=== PATIENT | male | born 1960 | race Caucasian/White ===

== ENCOUNTER 2021-04-17 17:19 | Emergency (ER) | payer MEDICAID, OTHER ==
[~2021-04-17] VITALS: Ht 180.3 cm; Wt 74.8 kg
[2021-04-17] MEDS ORDERED: SODIUM CHLORIDE 0.9% 1,000 ML IV ONE ×2 (18:00→23:45)
[2021-04-17 18:12] LABS: Basophils # (auto) 0.1 10 ^3/uL (0-0.2); Basophils % (auto) 0.6 % (0.0-2.0); Eosinophils # (auto) 0.1 10 ^3/uL (0-0.8); Hematocrit 39.8 % (41.0-53.0); Hemoglobin 13.8 g/dL (13.5-17.5); Lymphocytes # (auto) 1.9 10 ^3/uL (0.4-5.4); Lymphocytes % (auto) 14.3 % (10.0-50.0); Mean Corpuscular Hemoglobin 32.5 pg (28.0-32.0); Mean Corpuscular Hgb Conc. 34.6 g/dL (32.0-36.0); Mean Corpuscular Volume 93.9 fL (80.0-100.0); Monocytes # (auto) 1.7 10 ^3/uL (0-1.3); Neutrophils # (auto) 9.3 10 ^3/uL (1.6-8.6); Neutrophils % (auto) 71.1 % (37.0-80.0); Red Blood Cells 4.24 10^6/uL (4.5-5.90); Red Cell Distribution Width 13.6 % (11.8-14.3); White Blood Cell 13.1 10^3/uL (4.4-10.8)
[2021-04-17 18:19] LABS: Albumin 2.9 g/dL (3.4-5.0); Anion Gap 8 (5-15); Blood Urea Nitrogen 12 mg/dL (7-18); Calcium 8.4 mg/dL (8.5-10.1); Carbon Dioxide 25 mmol/L (21-32); Chloride 108 mmol/L (98-107); Glucose 63 mg/dL (74-106); Potassium 3.8 mmol/L (3.5-5.1); Sodium 141 mmol/L (136-145)
[2021-04-17 18:20] LABS: Alanine Aminotransferase 23 U/L (16-61); Aspartate Aminotransferase 10 U/L (15-37); BUN/Creatinine Ratio 9.8; GFR African American 77 mL/min; GFR Non-African American 64 mL/min
[2021-04-17 18:25] LABS: Alkaline Phosphatase 64 U/L (45-117); Bilirubin, Total 0.6 mg/dL (0.2-1.0); Total Protein 7.1 g/dL (6.4-8.2)
[2021-04-17] MEDS ORDERED: ONDANSETRON HCL 4 MG/2 ML VIAL IV ONE ×2 (19:00→23:00)
[2021-04-17 20:27] LABS: Urine Bacteria FEW /hpf (None Seen); Urine Blood Negative /uL (Negative); Urine Mucus FEW (None Seen); Urine Specific Gravity 1.029 (1.001-1.035); Urine WBC 4 /hpf (0 - 3)
[2021-04-17] MEDS ORDERED: PANTOPRAZOLE 40 MG/10 ML VIAL INJ IV ONE (20:30)
[2021-04-17 22:06] LABS: Alcohol, Urine < 3.0 mg/dL (0-10); Amphetamine Screen, Urine NEGATIVE (NEGATIVE); Barbiturate Scree,Urine NEGATIVE (NEGATIVE); Benzodiazephine Screen, Urine NEGATIVE (NEGATIVE); Cannabinoid Screen, Urine POSITIVE (NEGATIVE); Cocaine Screen, Urine NEGATIVE (NEGATIVE); Phencyclidine Screen, Urine NEGATIVE (NEGATIVE)
[2021-04-17 22:13] LABS: Opiate Scree,Urine NEGATIVE (NEGATIVE)
[2021-04-17] MEDS ORDERED: MORPHINE SULFATE 4 MG/ML SYR/VIAL IV ONE (23:00)
[2021-04-18 01:00] VITALS: BP 117/69
== END 2021-04-18 01:30 | disposition home or self-care (01) ==
LOC: ER 17:19
DX: K29.70 Gastritis, unspecified, without bleeding (principal); F12.10 Cannabis abuse, uncomplicated; K57.90 Diverticulosis of intestine, part unspecified, without perforation or abscess without bleeding; R07.89 Other chest pain; R51.9 Headache, unspecified; F17.210 Nicotine dependence, cigarettes, uncomplicated; Z20.822 Contact with and (suspected) exposure to COVID-19
CPT/HCPCS: 36415; 70450; 71045; 74176; 80053; 80307; 81001; 84484; 85025; 85049; 87426; 93005; 96361; 96374; 96375; 96376; 99285; C9113; J2270; J2405; J7030